=== PATIENT | female | born 1960 | race Caucasian/White ===

== ENCOUNTER 2017-01-21 11:24 | Emergency (ER) | payer MEDICAID ==
[2013-01-04 00:36] VITALS: BMI 23.9
== END 2017-01-21 14:49 | disposition home or self-care (01) ==
LOC: D.ER 11:24
DX: J20.9 Acute bronchitis, unspecified (principal); I10 Essential (primary) hypertension; R51 Headache

== ENCOUNTER → 2019-02-14 10:47 | Outpatient (CLI) | payer OTHER ==
[2013-01-04 00:36] VITALS: BMI 23.9
== END | disposition home or self-care (01) ==
LOC: D.RAD 10:30
PROVIDERS: ATTEND Pediatrics
DX: Z02.71 Encounter for disability determination (principal)